=== PATIENT | female | born 1985 | race Caucasian/White ===

== ENCOUNTER 2022-04-15 03:48 | Emergency (ER) | payer SELFPAY ==
[2022-04-15 04:08] VITALS: BP 124/72
[2022-04-15] MEDS ORDERED: TETANUS,DIPH,PERTUSS(ACELL) VACCINE 0.5 ML SYRINGE IM ONE (07:50)
--- NOTE | 2022-04-15 08:17 | XRay Report ---
Left tibia and fibula 3 views INDICATION: Rule out foreign body FINDINGS: Laceration is noted within the upper leg. No definite radiopaque foreign body is seen. No a cute fracture is identified. Signer Name: Errol Torres MD Signed: 04/15/2022 8:13 AM Workstation Name: [id number]
--- NOTE | 2022-04-15 09:32 | Emergency Department Report ---
ED Laceration HPI - HPI Chief Complaint: Extremity Injury, Lower Stated Complaint: LEFT LEG LACERATION Time Seen by Provider: 04/15/22 07:49 Occurred When: Today Location: Lower Extremity Severity: mild Tetanus Status: Not up to Date Laceration Symptoms: Yes Pain, No Foreign Body Sensation, No Numbness, No Weakness Other History: This is a 36-year-old female nontoxic, well nourished in appearance, no acute signs of distress presents to the ED with c/o of left lower leg laceration that occurred today around 3 am. Patient stated that she cut herself with a glass table. Patient denies decreased sensation or range of motion. Patient stated bleeding is under control. Denies any numbness, tingling, fever, chills, nausea, vomiting, chest pain, shortness of breath, headache or stiff neck. Patient denies any allergies to significant past medical history. Patient is that he is not up-to-date with tetanus. ED Review of Systems ROS: Stated complaint: LEFT LEG LACERATION Other details as noted in HPI Comment: All other systems reviewed and negative Constitutional: denies: chills, fever Eyes: denies: eye pain, eye discharge, vision change ENT: denies: ear pain, throat pain Respiratory: denies: cough, shortness of breath, wheezing Cardiovascular: denies: chest pain, palpitations Endocrine: no symptoms reported Gastrointestinal: denies: abdominal pain, nausea, diarrhea Genitourinary: denies: urgency, dysuria, discharge Musculoskeletal: denies: back pain, joint swelling, arthralgia Skin: denies: rash, lesions Neurological: denies: headache, weakness, paresthesias Psychiatric: denies: anxiety, depression Hematological/Lymphatic: denies: easy bleeding, easy bruising ED Past Medical Hx - Past Medical History Previous Medical History?: No - Surgical History Past Surgical History?: No - Social History Smoking Status: Never Smoker Substance Use Type: None - Medications Home Medications: Home Medications Medication Instructions Recorded Confirmed Last Taken Type Naproxen 500 mg PO Q12H PRN #12 tab 04/15/22 Unknown Rx Sulfamethoxazole/Trimethoprim 1 each PO BID #14 tab 04/15/22 Unknown Rx [Bactrim DS TAB] Laceration Physical Exam - Exam General: Vital signs noted. No distress. Alert and acting appropriately. Wound Length (cm): 4 Laceration Location: Lower Extremity Laceration Exam: Yes Normal Distal CMS, No Foreign Body, No Exposed Tendon, Vessel, or Nerve, No Tendon Injury ED Course Vital Signs 04/15/22 04:05 Temperature 98.5 F Pulse Rate 92 H Respiratory 18 Rate Blood Pressure 124/72 [Left] O2 Sat by Pulse 98 Oximetry - Reevaluation(s) Reevaluation #1: 04/15/22 09:30 Patient is speaking in full sentences with no signs of distress noted. - Laceration /Wound Repair Left Leg Wound Location: lower extremity (Left distal tib-fib area) Wound Length (cm): 4 Wound's Depth, Shape: superficial Wound Explored: clean Irrigated w/ Saline (ccs): 40 Betadine Prep?: Yes Volume Anesthetic (ccs): 6 (2% lidocaine with epi 1-200,000) Number of Sutures: 11 (dutch) Layer Closure?: No Sterile Dressing Applied?: Yes Progress: Under sterile field, I used Betadine to clean the area. I then used 40 mL of normal saline to flush the area. I then used 2% lidocaine with epi 1-200,000 and injected 6 mL to the wound. I then used a a stapler with total of 11 dutch placed. I then applied a sterile 4 x 4 with tape. Minimal bleeding noted but is under control. Patient tolerated procedure well with no signs of distress. ED Medical Decision Making - Radiology Data [address] [address] XRay Report Signed Patient: BUDDY MILLS MR#: [id number] : 1985 Acct:[id number] Age/Sex: 36 / F ADM Date: 04/15/22 Loc: ED Attending Dr: Ordering Physician: BALWINDER VARNER NP Date of Service: 04/15/22 Procedure(s): XR tibia fibula 2V LT Accession Number(s): [id number] cc: BALWINDER VARNER NP Fluoro Time In Minutes: Left tibia and fibula 3 views INDICATION: Rule out foreign body FINDINGS: Laceration is noted within the upper leg. No definite radiopaque foreign body is seen. No acute fracture is identified. Signer Name: Errol Torres MD Signed: 04/15/2022 8:13 AM Workstation Name: [id number] Transcribed By: CW Dictated By: AMY TORRES MD Electronically Authenticated By: AMY TORRES MD Signed Date/Time: 04/15/22812 DD/ 1 TD/TT: - Medical Decision Making This is a 36-year-old female that presents with laceration. Patient is stable and was examined by me. The laceration stapling has been performed and has been performed and patient tolerated well. A sterile dressing has been applied. Patient was educated on proper wound care. Patient is discharged with Bactrim. Patient was instructed to return in 10 days for staple removal. Patient was instructed to refer to Follow-up with a primary care doctor in 3-5 days or if symptoms worsen and continue return to emergency room as soon as possible. At time of discharge, the patient does not seem toxic or ill in appearance. No acute signs of distress noted. Patient agrees to discharge treatment plan of care. No further questions noted by the patient. Critical care attestation.: If time is entered above; I have spent that time in minutes in the direct care of this critically ill patient, excluding procedure time. ED Disposition Clinical Impression: Laceration Disposition: 01 HOME / SELF CARE / HOMELESS Is pt being admited?: No Does the pt Need Aspirin: No Condition: Stable Instructions: Laceration Care, Adult, [id number] Additional Instructions: Follow-up with a primary care doctor in 3-5 days or if symptoms worsen and continue return to emergency room as soon as possible. Return in 10 days for staple removal. Prescriptions: Sulfamethoxazole/Trimethoprim [Bactrim DS TAB] 1 each PO BID #14 tab Naproxen 500 mg PO Q12H PRN #12 tab PRN Reason: Pain , Severe (7-10) Referrals: LUANNE GAMEZ MD [Primary Care Provider] - 3-5 Days PRIMARY CAREMD [Referring] - 3-5 Days Time of Disposition: 09:33
== END 2022-04-15 09:56 | disposition home or self-care (01) ==
LOC: ED 03:48
DX: S81.812A Laceration without foreign body, left lower leg, initial encounter (principal); W25.XXXA Contact with sharp glass, initial encounter; Y93.89 Activity, other specified; Y92.89 Other specified places as the place of occurrence of the external cause; Y99.8 Other external cause status
CPT/HCPCS: 90471; 90715; 99283